=== PATIENT | female | born 1975 | race Caucasian/White ===

== ENCOUNTER 2024-12-08 00:49 | Emergency (ER) | payer BC, SELFPAY ==
[2024-12-08] MEDS ORDERED: DIPHENHYDRAMINE 50 MG/ML VIAL ONE ×2 (01:30→01:33)
[2024-12-08] MEDS ORDERED: droPERidol 5 MG/2 ML VIAL ONE ×2 (01:30→01:33)
[2024-12-08] MEDS ORDERED: NA CHLORIDE 0.9% 0 ML ONE (01:30)
[2024-12-08] MEDS ORDERED: NA CHLORIDE 0.9% 500 ML ONE ×2 (01:33→03:43)
[2024-12-08 01:44] LABS: Absolute Basophils 0.1 K/uL (0-0.5); Absolute Lymphocytes (CBC) 1.1 K/uL (0.7-4.9); Absolute Monocytes 0.4 K/uL (0.1-1.3); Absolute Neutrophil 10.7 K/uL (1.8-8.0); Basophils % 0.7 % (0-1.3); Hematocrit 42.7 % (36.0-45.0); Hemoglobin 14.5 g/dL (12.0-15.0); MCH 28.8 pg (27.0-35.0); MCHC 33.9 g/dL (32.0-36.0); MCV 84.7 fL (80-100); MPV 8.4 fL (7.6-11.3); Neutrophils % 87.3 % (41.7-73.7); Nucleated Red Blood Cells % 0.1 % (0-0); Platelets 291 thou/uL (152-406); RBC Red Blood Cell Count 5.04 M/uL (3.86-4.86); Red Cell Distribution Width 14.6 % (12.1-15.2)
[2024-12-08 01:57] LABS: Anion Gap 15.3 mEq/L (5.0-15.0); Potassium 3.3 mEq/L (3.5-5.1)
[2024-12-08 02:05] LABS: Specific Gravity 1.024 (1.005-1.030); Sqamous Epithelial <5 /HPF (None Seen); Urine Bacteria <20 /HPF (<20); Urine Bilirubin NEGATIVE (Negative); Urine Blood 1+ (Negative); Urine Clarity Extremely Turbid (Clear); Urine Color Light-Yellow (Yellow); Urine Culture Reflex Order NOT NEEDED; Urine Glucose NEGATIVE (Negative); Urine Ketones 4+ (Over) (Negative); Urine Micro Reflex YN NO BILL MICROSCOPIC; Urine Mucus Slight /HPF (None Seen); Urine Nitrite NEGATIVE (Negative); Urine Protein 2+ (Negative); Urine RBC >50 /HPF (None Seen); Urine Urobilinogen Normal (Normal); Urine WBC <5 /HPF (<5); Urine pH 8.5 (5.0-7.0)
[2024-12-08] MEDS ORDERED: DIAZEPAM 10 MG/2 ML INJ SYRINGE ONE (02:14)
[2024-12-08] MEDS ORDERED: KCL 20 MEQ/100 mL IVPB 100 ML IV ONE (03:44)
[2024-12-08 03:46] LABS: Blood Morphology Comment NOT SEEN (NOT SEEN); Platelet Estimate ADEQ; White Blood Cell Scan OK (OK)
--- NOTE | 2024-12-08 04:55 | ER ---
Nurse's Notes [facility] Name: Libra Singh Age: 49 yrs Sex: Female : 1975 Arrival Date: 12/08/2024 Time: 00:49 Bed 7 Private MD: Diagnosis: Nausea with vomiting, unspecified Presentation: 12/08 01:06 Chief complaint: Patient states: I have Nausea and vomiting for 5 hours. Coronavirus bm8 screen: At this time, the client does not indicate any symptoms associated with coronavirus-19. Ebola Screen: Patient negative for fever greater than or equal to 101.5 degrees Fahrenheit, and additional compatible Ebola Virus Disease symptoms Patient denies exposure to infectious person. Patient denies travel to an Ebola-affected area in the 21 days before illness onset. No symptoms or risks identified at this time. Initial Sepsis Screen: Does the patient meet any 2 criteria? No. Patient's initial sepsis screen is negative. Does the patient have a suspected source of infection? No. Patient's initial sepsis screen is negative. Risk Assessment: Do you want to hurt yourself or someone else? Patient reports no desire to harm self or others. Onset of symptoms was December 07, 2024 at 21:00. 01:06 Method Of Arrival: Ambulatory bm8 01:06 Acuity: NALLELY 3 bm8 Triage Assessment: 01:08 General: Appears in no apparent distress. uncomfortable, Behavior is calm, cooperative, bm8 appropriate for age. Pain: Complains of pain in abdomen Pain currently is 8 out of 10 on a pain scale. EENT: No deficits noted. No signs and/or symptoms were reported regarding the EENT system. Neuro: No deficits noted. Level of Consciousness is awake, alert, obeys commands, Oriented to person, place, time, situation, Appropriate for age. Cardiovascular: Denies chest pain, Capillary refill < 3 seconds in bilateral fingers Patient's skin is warm and dry. Respiratory: Airway is patent Trachea midline Respiratory effort is even, unlabored, Respiratory pattern is regular, symmetrical. GI: Reports lower abdominal pain, upper abdominal pain, nausea, vomiting. : No signs and/or symptoms were reported regarding the genitourinary system. Derm: No signs and/or symptoms reported regarding the dermatologic system. Musculoskeletal: No signs and/or symptoms reported regarding the musculoskeletal system. 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 - Infectious Disease History:: Denies. - Social history:: Smoking status: Reported history of juuling and/or vaping. Patient uses street drugs, marijuana. Screenin:39 [facility] ED Fall Risk Assessment (Adult) History of falling in the last 3 months, bm8 including since admission No falls in past 3 months (0 pts) Confusion or Disorientation No (0 pts) Intoxicated or Sedated No (0 pts) Impaired Gait No (0 pts) Mobility Assist Device Used No (0 pt) Altered Elimination No (0 pt) Score/Fall Risk Level 0 - 2 = Low Risk Oriented to surroundings, Maintained a safe environment, Educated pt \T\ family on fall prevention, incl call for assistance when getting out of bed, Assessed \T\ reinforced patient's understanding of fall precautions, Hourly rounding (assess needs \T\ fall precautionary measures) done, Used ambulatory aids as needed (educated on \T\ assisted with), Used gait belt as appropriate. Abuse screen: Denies threats or abuse. Nutritional screening: No deficits noted. Tuberculosis screening: No symptoms or risk factors identified. Assessment: 01:38 Reassessment: see triage assessment. bm8 01:40 Reassessment: pt declined testing for flu and covid. bm8 02:47 Reassessment: Patient appears in no apparent distress at this time. Patient and/or bm8 family updated on plan of care and expected duration. Pain level reassessed. Patient is alert, oriented x 3, equal unlabored respirations, skin warm/dry/pink. GI: Abdomen is flat, non-distended, Bowel sounds present X 4 quads. Reports nausea, vomiting, provider informed. 03:58 Reassessment: Patient appears in no apparent distress at this time. Patient and/or bm8 family updated on plan of care and expected duration. Pain level reassessed. Patient is alert, oriented x 3, equal unlabored respirations, skin warm/dry/pink. Patient denies pain at this time. Patient states feeling better. GI: Reports nausea, but the nausea is much more tolerable then when I came in. 05:00 Reassessment: Patient appears in no apparent distress at this time. Patient and/or bm8 family updated on plan of care and expected duration. Pain level reassessed. Patient is alert, oriented x 3, equal unlabored respirations, skin warm/dry/pink. pt states she is feeling much better and is ready to go home Patient denies pain at this time. Patient states feeling better. Patient states symptoms have improved. Vital Signs: 01:06 BP 165 / 101; Pulse 68; Resp 20; Temp 97.7; Pulse Ox 100% ; Weight 72.57 kg; Height 5 bm8 ft. 6 in. ; Pain 8/10; 02:47 BP 176 / 89; Pulse 78; Resp 19; Temp 97.7; Pulse Ox 97% ; Pain 4/10; bm8 03:58 BP 180 / 99; Pulse 83; Resp 18; Temp 97.7; Pulse Ox 100% ; Pain 2/10; bm8 04:49 BP 160 / 85; Pulse 65; Resp 18 S; Pulse Ox 100% on R/A; br2 05:00 BP 160 / 85; Pulse 75; Resp 17; Temp 97.5; Pulse Ox 100% ; Pain 0/10; bm8 01:06 Body Mass Index 25.82 (72.57 kg, 167.64 cm) bm8 01:06 Pain Scale: Adult bm8 02:47 Pain Scale: Adult bm8 03:58 Pain Scale: Adult bm8 05:00 Pain Scale: Adult bm8 Monica Coma Score: 01:39 Eye Response: spontaneous(4). Motor Response: obeys commands(6). Verbal Response: bm8 oriented(5). Total: 15. 02:47 Eye Response: spontaneous(4). Motor Response: obeys commands(6). Verbal Response: bm8 oriented(5). Total: 15. 03:58 Eye Response: spontaneous(4). Motor Response: obeys commands(6). Verbal Response: bm8 oriented(5). Total: 15. 05:00 Eye Response: spontaneous(4). Motor Response: obeys commands(6). Verbal Response: bm8 oriented(5). Total: 15. ED Course: 00:50 Patient arrived in ED. [id number] 00:55 Pankaj Hobbs MD is Attending Physician. ec2 01:06 Sumit Garibay, RN is Primary Nurse. bm8 01:07 Triage completed. bm8 01:08 Arm band placed on right wrist. bm8 01:39 Patient has correct armband on for positive identification. Placed in gown. Bed in low bm8 position. Call light in reach. Side rails up X 1. Client placed on continuous cardiac and pulse oximetry monitoring. NIBP monitoring applied. Pulse ox on. NIBP on. Door closed. Warm blanket given. Pillow given. Verbal reassurance given. 01:39 No provider procedures requiring assistance completed. Inserted saline lock: 22 gauge bm8 in right antecubital area, using aseptic technique. Blood collected. Flushed with 10 mL NS 02:39 CT Abd/Pelvis - IV Contrast Only In Process Unspecified. EDMS 05:00 Provided Education on: post er care. bm8 05:00 IV discontinued, intact, bleeding controlled, No redness/swelling at site. Pressure bm8 dressing applied. Administered Medications: 01:38 Drug: Droperidol IVP 1.25 mg IVP once Route: IVP; Site: right antecubital; bm8 02:50 Follow up: Response: No adverse reaction bm8 01:38 Drug: diphenhydrAMINE IVP 25 mg IVP once Route: IVP; Site: right antecubital; bm8 02:50 Follow up: Response: No adverse reaction bm8 01:44 Drug: NS 0.9% IV 500 ml IV at bolus once; to be given as a bolus over 30 minutes Route: bm8 IV; Rate: bolus; Site: right antecubital; 02:50 Follow up: Response: No adverse reaction; IV Status: Completed infusion; IV Intake: bm8 500ml 02:15 Drug: Diazepam IVP 10 mg IVP once Route: IVP; Site: right antecubital; bm8 02:50 Follow up: Response: No adverse reaction bm8 03:52 Drug: Potassium Chloride IV 20 mEq IV at calculated rate once; administer over 1-2 bm8 hours Route: IV; Rate: calculated rate; Site: right antecubital; 05:01 Follow up: Response: No adverse reaction; IV Status: Completed infusion; IV Intake: bm8 100ml 03:53 Drug: NS 0.9% IV 500 ml 500 ml IV at 1 bolus once; to be given as a bolus over 30 bm8 minutes Volume: 500 ml; Route: IV; Rate: 1 bolus; Site: right antecubital; 05:01 Follow up: Response: No adverse reaction; IV Status: Completed infusion; IV Intake: bm8 250ml 03:59 Not Given (Physician Discretion): potassium [id number] meq PO once bm8 Medication: 01:39 VIS not applicable for this client. bm8 Intake: 02:50 IV: 500ml; Total: 500ml. bm8 05:01 IV: 250ml; Total: 750ml. bm8 05:01 IV: 100ml; Total: 850ml. bm8 Outcome: 04:55 Discharge ordered by . ec2 05:03 Discharged to home ambulatory, bm8 05:03 Condition: stable 05:03 Discharge instructions given to patient, Instructed on discharge instructions, follow up and referral plans. no drinking with medication, no driving heavy equipment, medication usage, Demonstrated understanding of instructions, 05:03 Prescriptions given X 1, bm8 05:05 Patient left the ED. bm8 Signatures: Dispatcher [employer] EDMS Stefanie Starkey [email or web address] Pankaj Hobbs MD MD ec2 Sumit Garibay RN RN bm8 Jennifer Rabago RN RN br2 Corrections: (The following items were deleted from the chart) 05:03 01:39 Inserted saline lock: 22 gauge in right antecubital area, using aseptic bm8 technique. Blood collected. Flushed with 10 mL NS Patient did not have IV access during this emergency room visit. bm8
--- NOTE | 2024-12-08 04:56 | EDPHYS ---
Physician Documentation [facility] Name: Libra Singh Age: 49 yrs Sex: Female : 1975 Arrival Date: 12/08/2024 Time: 00:49 Bed 7 Private MD: ED Physician Pankaj Hobbs HPI: 12/08 01:12 This 49 yrs old Female presents to ER via Ambulatory with complaints of ec2 Nausea/Vomiting, Weakness. 01:12 Patient arrives today for evaluation of nausea and vomiting. Reports she is feeling ec2 unwell. States that she is been having nausea for 2 days and is having some vomiting that started today. Denies any abdominal pain. No urinary complaints. No cough and cold symptoms.. DUMP [address] [address]: 01:08 LMP 2010, unknown bm8 Historical: - Allergies: 01:08 No Known Allergies; bm8 - Home Meds: 01:08 Lamictal Oral [Active]; Lexapro Oral [Active]; bm8 - PMHx: 01:08 Bipolar disorder; Tardive dyskinesia; bm8 - PSHx: 01:08 breast; ovaries; tubal ligation; bm8 - Immunization history:: Adult Immunizations up to date. - Infectious Disease History:: Denies. - Social history:: Smoking status: Reported history of juuling and/or vaping. Patient uses street drugs, marijuana. ROS: 01:12 Constitutional: as per hpi ec2 Exam: 01:12 Constitutional: GEN: NAD Head: atraumatic Eyes: EOMI Ears: External ears are ec2 normal. CV: regular rate LUNGS: no respiratory distress ABD: non-distended, soft, not tender, not guarding, not rigid SKIN: no evidence of rashes MSK: no evidence of trauma Vital Signs: 01:06 BP 165 / 101; Pulse 68; Resp 20; Temp 97.7; Pulse Ox 100% ; Weight 72.57 kg; Height 5 bm8 ft. 6 in. ; Pain 8/10; 02:47 BP 176 / 89; Pulse 78; Resp 19; Temp 97.7; Pulse Ox 97% ; Pain 4/10; bm8 03:58 BP 180 / 99; Pulse 83; Resp 18; Temp 97.7; Pulse Ox 100% ; Pain 2/10; bm8 04:49 BP 160 / 85; Pulse 65; Resp 18 S; Pulse Ox 100% on R/A; br2 05:00 BP 160 / 85; Pulse 75; Resp 17; Temp 97.5; Pulse Ox 100% ; Pain 0/10; bm8 01:06 Body Mass Index 25.82 (72.57 kg, 167.64 cm) bm8 01:06 Pain Scale: Adult bm8 02:47 Pain Scale: Adult bm8 03:58 Pain Scale: Adult bm8 05:00 Pain Scale: Adult bm8 Monica Coma Score: 01:39 Eye Response: spontaneous(4). Motor Response: obeys commands(6). Verbal Response: bm8 oriented(5). Total: 15. 02:47 Eye Response: spontaneous(4). Motor Response: obeys commands(6). Verbal Response: bm8 oriented(5). Total: 15. 03:58 Eye Response: spontaneous(4). Motor Response: obeys commands(6). Verbal Response: bm8 oriented(5). Total: 15. 05:00 Eye Response: spontaneous(4). Motor Response: obeys commands(6). Verbal Response: bm8 oriented(5). Total: 15. MDM: 00:59 Medical Screening Exam initiated ec2 01:12 Data reviewed: vital signs, nurses notes. ED course: GEN: NAD Head: atraumatic Eyes: ec2 EOMI Ears: External ears are normal. CV: regular rate LUNGS: no respiratory distress ABD: non-distended, soft, nontender, no guarding, not rigid SKIN: no evidence of rashes MSK: no evidence of trauma. 01:12 ED course: Patient arrives today for evaluation of nausea vomiting. Examination is ec2 revealing for well-appearing nontoxic individual has a reassuring abdominal examination. Will obtain lab work, urine studies and treat the patient symptoms. Suspect gastroenteritis. Additionally considered urinary tract infection.. 02:01 ED course: Metabolic profile shows slight hypokalemia with potassium of 3.3, minimal ec2 anion gap elevation. Patient receiving crystalloid, patient reports improvement in symptoms. Slight leukocytosis noted.. 02:01 ED course: Patient without any focal abdominal pain, doubt appendicitis, doubt ec2 cholecystitis.. 04:55 ED course: CT imaging shows pancolitis. Will discharge home with antiemetic. Return ec2 precautions given.. 04:57 ED course: Patient with hypokalemia, replaced intravenously, patient discharged home. ec2 Return precautions given.. 12/08 01:12 Order name: CBC with Diff; Complete Time: 04:21 ec2 12/08 01:12 Order name: BMP; Complete Time: 02:00 ec2 12/08 01:12 Order name: UAM; Complete Time: 02:11 ec2 12/08 03:46 Order name: CBC Smear Scan; Complete Time: 04:21 EDMS 12/08 02:12 Order name: CT Abd/Pelvis - IV Contrast Only ec2 12/08 01:12 Order name: IV; Complete Time: 01:38 ec2 Administered Medications: 01:38 Drug: Droperidol IVP 1.25 mg IVP once Route: IVP; Site: right antecubital; bm8 02:50 Follow up: Response: No adverse reaction bm8 01:38 Drug: diphenhydrAMINE IVP 25 mg IVP once Route: IVP; Site: right antecubital; bm8 02:50 Follow up: Response: No adverse reaction bm8 01:44 Drug: NS 0.9% IV 500 ml IV at bolus once; to be given as a bolus over 30 minutes Route: bm8 IV; Rate: bolus; Site: right antecubital; 02:50 Follow up: Response: No adverse reaction; IV Status: Completed infusion; IV Intake: bm8 500ml 02:15 Drug: Diazepam IVP 10 mg IVP once Route: IVP; Site: right antecubital; bm8 02:50 Follow up: Response: No adverse reaction bm8 03:52 Drug: Potassium Chloride IV 20 mEq IV at calculated rate once; administer over 1-2 bm8 hours Route: IV; Rate: calculated rate; Site: right antecubital; 05:01 Follow up: Response: No adverse reaction; IV Status: Completed infusion; IV Intake: bm8 100ml 03:53 Drug: NS 0.9% IV 500 ml 500 ml IV at 1 bolus once; to be given as a bolus over 30 bm8 minutes Volume: 500 ml; Route: IV; Rate: 1 bolus; Site: right antecubital; 05:01 Follow up: Response: No adverse reaction; IV Status: Completed infusion; IV Intake: bm8 250ml 03:59 Not Given (Physician Discretion): potassium [id number] meq PO once bm8 Disposition Summary: 12/08/24 04:55 Discharge Ordered Notes: Location: Home ec2 Condition: Stable ec2 Diagnosis - Nausea with vomiting, unspecified ec2 Followup: ec2 - With: Private Physician - When: - Reason: Re-evaluation by your physician Discharge Instructions: - Discharge Summary Sheet ec2 - Nausea and Vomiting, Adult, [id number] ec2 Forms: - Medication Reconciliation Form ec2 - Antibiotic Education ec2 - Prescription Opioid Use ec2 - Patient Portal Instructions ec2 - Leadership Thank You Letter ec2 Prescriptions: - Zofran 4 mg Oral Tablet - take 1 tablet ORAL route every 12 hours As needed; 20 tablet; Refills: 0, ec2 Product Selection Permitted Critical care time excluding procedures: 04:57 Critical care time: Bedside Care: 30 minutes, Consultation: 5 minutes. Total time: 35 ec2 minutes Signatures: Dispatcher [employer] Pankaj Ramirez MD MD ec2 Sumit Garibay RN RN bm8
--- NOTE | 2024-12-08 05:47 | RAD REPORT ---
CT ABDOMEN PELVIS WITH IV CONTRAST Exam date: December 08, 2024 Comparison: None Indication: Abdominal pain Technique: Multiple helical axial images were obtained through the abdomen and pelvis using intravenous contrast . Coronal and sagittal reformatted images were obtained. All CT scans at this facility use dose modulation, iterative reconstruction, and/or weight-based dosi ng when appropriate to reduce radiation dose to as low as reasonably achievable. Findings: Lung bases: Breast implants are present]. Mild basilar atelectasis noted. Liver: [There is low attenuation suggesting fatty changes.] Gallbladder/biliary: [Appears unremarkable] Pancreas: [Unremarkable. No evidence of ductal enlargement.] Spleen: Appears borderline enlarged. Adrenals: Unremarkable. Kidneys and ureters: [No evidence of hydronephrosis. Normal enhancement.] There is a 3 mm stone in the midpole of the right kidney. Bladder: Unremarkable. Pelvic organs: Unremarkable. Bowel: [There is a mildly thickened appearance of the colon. There is mild prominence of pericolonic vascularity. Colonic diverticula are present. No evidence of bowel obstruction.] Appendix appears unremarkable. Vasculature: Mild aortic atherosclerosis demonstrated. Peritoneum: No free air. No significant free fluid. Lymph nodes: Unremarkable. Soft tissues: Unremarkable. Bones: Unremarkable. Impression: 1. Mildly thickened appearance of the colon which may reflect pancolitis. 2. Small right renal stone. 3. Hepatic steatosis. Electronically signed by: Cecil Saini MD 12/08/2024 04:52 AM [facility] Due to temporary technical issues with the PACS/Bundle It reporting system, reports are being ruth d by the in-house radiologist without review as a courtesy to ensure prompt reporting the interpreting radiologist is fully responsible for the content of the report. Transcribed Date/Time: 12/08/2024 5:47 AM
[2024-12-10 15:53] VITALS: BP 160/85; TEMP 97.5; O2SAT 100
== END 2024-12-08 05:05 | disposition home or self-care (01) ==
LOC: ER 00:49
DX: R11.2 Nausea with vomiting, unspecified (principal); Z87.891 Personal history of nicotine dependence
CPT/HCPCS: 96365; 96361; 85025; 81001; 80048; 36415; 74177; 96375; 99284; Q9967; J3480; J1200; J3360; J1790; J7040 ×2

== ENCOUNTER 2025-03-06 11:13 | Emergency (ER) | payer BC ==
--- OUTSIDE RECORDS SUMMARY | 2025-03-06 11:16 | XMS REPORT | Continuity of Care Document ---
Author Name Unknown Address [address] [place] [address] [address] [place] [address] [facility] [address] [facility] [address] [place] [address] Care Team Providers Care Electrification Adviser Name Role Phone [email or web address] Attending Clinician Karen Alejandre Attending Clinician [phone] [email or web address] Admitting Clinician Maycol hickey Payers Payer Name Policy Type Policy Number Effective Date Expirati on Date Source [facility] [id number] [facility] [id number] 2018 00:00:00 Problems Condition Name Condition Details Condition Category Status Onset Date Resolution Date Last Treatment Date Treating Clinician Comments Source Mental disorder Mental Disorder Problem Active 2020-11 00:00: 00 [facility] Hypertensi ve disorder Hypertensi ve Disorder Problem Active 2020-11 00:00: 00 [facility] Asthma Asthma Problem Active 2020-11 00:00: 00 [facility] Endometriu m thickened Endometriu m Thickened Problem Active 02-06 00:00: 00 [facility] Long-term current use of selective estrogen receptor modulator Long-term Current Use of Selective Estrogen Receptor Modulator Problem Active 02-06 00:00: 00 [facility] Cyst of ovary Cyst of Ovary Problem Active [facility] Abnormal uterine bleeding Abnormal Uterine Bleeding Problem Active [facility] Malignant tumor of breast Malignant Tumor of Breast Problem Active [facility] Bipolar disorder Bipolar Disorder Problem Active [facility] Social History Smoking Status Start Date Stop Date Source Former Smoker [facility] Medications Ordered Medication Name Filled Medication Name Start Date Stop Date Current Medication? Ordering Clinician Indication Dosage Frequency Signature (SIG) Comments Components Source promethazin e 25 mg tablet promethazin e 25 mg tablet No promethazi ne 25 mg tablet [facility] risperidone 0.25 mg tablet risperidone 0.25 mg tablet No risperidon e 0.25 mg tablet [facility] risperidone 0.5 mg tablet risperidone 0.5 mg tablet No risperidon e 0.5 mg tablet [facility] risperidone 3 mg tablet risperidone 3 mg tablet No risperidon e 3 mg tablet [facility] tretinoin 0.025 % topical cream APPLY PEA SIZED AMOUNT TOPICALLY TO FACE 2 TO 3 TIMES A WEEK AT NIGHT. INCREASE TO EVERY NIGHT TOLERATED. FOLLOW WITH A THICK LAYER OF MOISTURIZER tretinoin 0.025 % topical cream APPLY PEA SIZED AMOUNT TOPICALLY TO FACE 2 TO 3 TIMES A WEEK AT NIGHT. INCREASE TO EVERY NIGHT TOLERATED. FOLLOW WITH A THICK LAYER OF MOISTURIZER No tretinoin 0.025 % topical cream APPLY PEA SIZED AMOUNT TOPICALLY TO FACE 2 TO 3 TIMES A WEEK AT NIGHT. INCREASE TO EVERY NIGHT TOLERATED. FOLLOW WITH A THICK LAYER OF MOISTURIZE R [facility] Zepbound 10 mg/0.5 mL subcutaneou s pen injector INJECT 10MG SUBCUTANEOU SLY ONCE EVERY WEEK ON THE SAME DAY EACH WEEK INTO ABDOMEN THIGH OR UPPER ARM WITH OR WITHOUT FOOD Zepbound 10 mg/0.5 mL subcutaneou s pen injector INJECT 10MG SUBCUTANEOU SLY ONCE EVERY WEEK ON THE SAME DAY EACH WEEK INTO ABDOMEN THIGH OR UPPER ARM WITH OR WITHOUT FOOD No Zepbound 10 mg/0.5 mL subcutaneo us pen injector INJECT 10MG SUBCUTANEO USLY ONCE EVERY WEEK ON THE SAME DAY EACH WEEK INTO ABDOMEN THIGH OR UPPER ARM WITH OR WITHOUT FOOD [facility] Zepbound 2.5 mg/0.5 mL subcutaneou s pen injector Zepbound 2.5 mg/0.5 mL subcutaneou s pen injector No Zepbound 2.5 mg/0.5 mL subcutaneo us pen injector [facility] Zepbound 5 mg/0.5 mL subcutaneou s pen injector Zepbound 5 mg/0.5 mL subcutaneou s pen injector No Zepbound 5 mg/0.5 mL subcutaneo us pen injector [facility] Zepbound 5 mg/0.5 mL subcutaneou s solution 10 mg every week by sub-q route. Zepbound 5 mg/0.5 mL subcutaneou s solution 10 mg every week by sub-q route. No 10mg Q1W Zepbound 5 mg/0.5 mL subcutaneo us solution 10 mg every week by sub-q route. [facility] Zepbound 7.5 mg/0.5 mL subcutaneou s pen injector Zepbound 7.5 mg/0.5 mL subcutaneou s pen injector No Zepbound 7.5 mg/0.5 mL subcutaneo us pen injector [facility] alprazolam 0.5 mg tablet TAKE 1 TO 2 TABLETS BY MOUTH EVERY 6 HOURS NEEDED alprazolam 0.5 mg tablet TAKE 1 TO 2 TABLETS BY MOUTH EVERY 6 HOURS NEEDED No alprazolam 0.5 mg tablet TAKE 1 TO 2 TABLETS BY MOUTH EVERY 6 HOURS NEEDED [facility] escitalopra m 20 mg tablet escitalopra m 20 mg tablet No escitalopr am 20 mg tablet [facility] furosemide 20 mg tablet furosemide 20 mg tablet No furosemide 20 mg tablet [facility] lamotrigine 200 mg tablet lamotrigine 200 mg tablet No lamotrigin e 200 mg tablet [facility] lithium carbonate ER 300 mg tablet,exte nded release TAKE 1 TABLET BY MOUTH EVERY MORNING AND 2 TABLETS BY MOUTH EVERY NIGHT AT BEDTIME lithium carbonate ER 300 mg tablet,exte nded release TAKE 1 TABLET BY MOUTH EVERY MORNING AND 2 TABLETS BY MOUTH EVERY NIGHT AT BEDTIME No lithium carbonate ER 300 mg tablet,ext ended release TAKE 1 TABLET BY MOUTH EVERY MORNING AND 2 TABLETS BY MOUTH EVERY NIGHT AT BEDTIME [facility] methylpheni date 10 mg tablet methylpheni date 10 mg tablet No methylphen idate 10 mg tablet [facility] methylpheni date 20 mg tablet methylpheni date 20 mg tablet No methylphen idate 20 mg tablet [facility] minocycline 100 mg capsule minocycline 100 mg capsule No minocyclin e 100 mg capsule [facility] olmesartan 20 mg tablet olmesartan 20 mg tablet No olmesartan 20 mg tablet [facility] potassium chloride ER 10 mEq capsule,ext ended release potassium chloride ER 10 mEq capsule,ext ended release No potassium chloride ER 10 mEq capsule,ex tended release [facility] tamoxifen 20 mg tablet tamoxifen 20 mg tablet No tamoxifen 20 mg tablet [facility] telmisartan 40 mg tablet telmisartan 40 mg tablet No telmisarta n 40 mg tablet [facility] tobramycin 0.3 % eye drops tobramycin 0.3 % eye drops No tobramycin 0.3 % eye drops [facility] tranexamic acid 650 mg tablet tranexamic acid 650 mg tablet No tranexamic acid 650 mg tablet [facility] valacyclovi r 1 gram tablet valacyclovi r 1 gram tablet No valacyclov ir 1 gram tablet [facility] valsartan 160 mg tablet valsartan 160 mg tablet No valsartan 160 mg tablet [facility] Vraylar 1.5 mg capsule Vraylar 1.5 mg capsule No Vraylar 1.5 mg capsule [facility] Vraylar 3 mg capsule Vraylar 3 mg capsule No Vraylar 3 mg capsule [facility] acetaminoph en 300 mg-codeine 30 mg tablet TAKE 1 TABLET BY MOUTH EVERY 6 HOURS NEEDED FOR PAIN acetaminoph en 300 mg-codeine 30 mg tablet TAKE 1 TABLET BY MOUTH EVERY 6 HOURS NEEDED FOR PAIN No acetaminop hen 300 mg-codeine 30 mg tablet TAKE 1 TABLET BY MOUTH EVERY 6 HOURS NEEDED FOR PAIN [facility] albuterol sulfate HFA 90 mcg/actuati on aerosol inhaler INHALE 2 PUFFS BY MOUTH EVERY 4 HOURS DIRECTED NEEDED FOR WHEEZING albuterol sulfate HFA 90 mcg/actuati on aerosol inhaler INHALE 2 PUFFS BY MOUTH EVERY 4 HOURS DIRECTED NEEDED FOR WHEEZING No albuterol sulfate HFA 90 mcg/actuat ion aerosol inhaler INHALE 2 PUFFS BY MOUTH EVERY 4 HOURS DIRECTED NEEDED FOR WHEEZING [facility] amoxicillin 500 mg capsule amoxicillin 500 mg capsule No amoxicilli n 500 mg capsule [facility] amoxicillin 875 mg-potassiu m clavulanate 125 mg tablet TAKE 1 TABLET BY MOUTH EVERY 12 HOURS FOR 7 DAYS amoxicillin 875 mg-potassiu m clavulanate 125 mg tablet TAKE 1 TABLET BY MOUTH EVERY 12 HOURS FOR 7 DAYS No amoxicilli n 875 mg-potassi um clavulanat e 125 mg tablet TAKE 1 TABLET BY MOUTH EVERY 12 HOURS FOR 7 DAYS [facility] clindamycin 2 % vaginal cream Insert 1 applicatorf ul every day by vaginal route at bedtime for 7 days. clindamycin 2 % vaginal cream Insert 1 applicatorf ul every day by vaginal route at bedtime for 7 days. No 1applic ator(s) ful Q1D clindamyci n 2 % vaginal cream Insert 1 applicator ful every day by vaginal route at bedtime for 7 days. [facility] clonazepam 0.5 mg tablet TAKE 1 TABLET BY MOUTH EVERY MORNING. AFTER 5 DAYS MAY INCREASE TO TWICE DAILY clonazepam 0.5 mg tablet TAKE 1 TABLET BY MOUTH EVERY MORNING. AFTER 5 DAYS MAY INCREASE TO TWICE DAILY No clonazepam 0.5 mg tablet TAKE 1 TABLET BY MOUTH EVERY MORNING. AFTER 5 DAYS MAY INCREASE TO TWICE DAILY [facility] clonazepam 1 mg tablet TAKE 1 TABLET BY MOUTH EVERY MORNING AND 1.5 TABLETS DAILY AFTER SUPPER clonazepam 1 mg tablet TAKE 1 TABLET BY MOUTH EVERY MORNING AND 1.5 TABLETS DAILY AFTER SUPPER No clonazepam 1 mg tablet TAKE 1 TABLET BY MOUTH EVERY MORNING AND 1.5 TABLETS DAILY AFTER SUPPER [facility] dextroamphe tamine-amph etamine 10 mg tablet TAKE 2 TABLETS BY MOUTH EVERY MORNING AND 1 TABLET DAILY AFTER LUNCH dextroamphe tamine-amph etamine 10 mg tablet TAKE 2 TABLETS BY MOUTH EVERY MORNING AND 1 TABLET DAILY AFTER LUNCH No dextroamph etamine-am phetamine 10 mg tablet TAKE 2 TABLETS BY MOUTH EVERY MORNING AND 1 TABLET DAILY AFTER LUNCH [facility] dextroamphe tamine-amph etamine 20 mg tablet dextroamphe tamine-amph etamine 20 mg tablet No dextroamph etamine-am phetamine 20 mg tablet [facility] doxycycline hyclate 100 mg capsule Take 1 capsule twice a day by oral route for 7 days. doxycycline hyclate 100 mg capsule Take 1 capsule twice a day by oral route for 7 days. No doxycyclin e hyclate 100 mg capsule Take 1 capsule twice a day by oral route for 7 days. [facility] doxycycline hyclate 100 mg tablet TAKE 1 TABLET BY MOUTH TWICE DAILY WITH A FULL GLASS OF WATER AND MEAL FOR 3 WEEKS doxycycline hyclate 100 mg tablet TAKE 1 TABLET BY MOUTH TWICE DAILY WITH A FULL GLASS OF WATER AND MEAL FOR 3 WEEKS No doxycyclin e hyclate 100 mg tablet TAKE 1 TABLET BY MOUTH TWICE DAILY WITH A FULL GLASS OF WATER AND MEAL FOR 3 WEEKS [facility] escitalopra m 10 mg tablet escitalopra m 10 mg tablet No escitalopr am 10 mg tablet [facility] Fluarix Quad 3705-0032 (PF) 60 mcg (15 mcg x 4)/0.5 mL IM syringe Fluarix Quad (PF) 60 mcg (15 mcg x 4)/0.5 mL IM syringe No Fluarix Quad (PF) 60 mcg (15 mcg x 4)/0.5 mL IM syringe [facility] ibuprofen 600 mg tablet TAKE 1 TABLET BY MOUTH EVERY 5 TO 6 HOURS NEEDED FOR PAIN ibuprofen 600 mg tablet TAKE 1 TABLET BY MOUTH EVERY 5 TO 6 HOURS NEEDED FOR PAIN No ibuprofen 600 mg tablet TAKE 1 TABLET BY MOUTH EVERY 5 TO 6 HOURS NEEDED FOR PAIN [facility] Ingrezza 80 mg capsule Ingrezza 80 mg capsule No Ingrezza 80 mg capsule [facility] montelukast 10 mg tablet montelukast 10 mg tablet No montelukas t 10 mg tablet [facility] pantoprazol e 40 mg tablet,judi yed release TAKE 1 TABLET BY MOUTH ONCE EVERY DAY ON AN EMPTY STOMACH pantoprazol e 40 mg tablet,judi yed release TAKE 1 TABLET BY MOUTH ONCE EVERY DAY ON AN EMPTY STOMACH No pantoprazo le 40 mg tablet,del ayed release TAKE 1 TABLET BY MOUTH ONCE EVERY DAY ON AN EMPTY STOMACH [facility] Immunizations Ordered Immunization Name Filled Immunization Name Date Status Comments Source influenza nasal, unspecified formulation influenza nasal, unspecified formulation Unknown Completed [facility] influenza, seasonal, injectable influenza, seasonal, injectable Unknown Completed [facility] Vital Signs Vital Name Observation Time Observation Value Comments S ource BMI (Body Mass Index) 2024-07-18 00:00:00 26 kg/m2 [facility] BP Diastolic 2024-07-18 00:00:00 91 mm[Hg] [facility] Body Weight 2024-07-18 00:00:00 161 [lb_av] [facility] Height 2024-07-18 00:00:00 66 [in_i] [facility] BP Systolic 2024-07-18 00:00:00 135 mm[Hg] [facility] BP Diastolic 2022-04-21 00:00:00 67 mm[Hg] [facility] Height 2022-04-21 00:00:00 66 [in_i] [facility] BMI (Body Mass Index) 2022-04-21 00:00:00 32.1 kg/m2 [facility] BP Systolic 2022-04-21 00:00:00 110 mm[Hg] [facility] Body Weight 2022-04-21 00:00:00 198.8 [lb_av] [facility] Procedures Procedure Date / Time Performed Performing [facility] Source SCREENING MAMMOGRAPHY BI 2-VIEW BREAST INC CAD 2024-07-18 00:00:00 [facility] Hysteroscopy 2020-02-07 00:00:00 [facility] 2017-12-28 00:00:00 [facility] Ovarian Cystectomy 2013-10-18 00:00:00 [facility] Tubal Ligation 2012-12-28 00:00:00 [facility] Endometrial Ablation 2012-12-28 00:00:00 [facility] Leep 2012-11-27 00:00:00 [facility] Ooph[facility] (Ovary Removal) 2011-12-28 00:00:00 [facility] Mastectomy 2011-11-27 00:00:00 [facility] M edical Biopsy of Breast 2011-10-27 00:00:00 [facility] Breast Implants 2009-09-27 00:00:00 [facility] Dental Surgery [facility] Dilation and Curettage [facility] a Medical Encounters Start Date/Time End Date/Time Encounter Type Admission Type Attending Clinicians Care Facility Care Department Encounter ID Source 2024-07-18 00:00:00 2024-07-18 00:00:00 Karen Thompson MD: [address] , [facility] [address] [address] , Ph. [facility] - NTX_AMARJIT_ [place] Office* [id number] [facility] 2022-04-25 00:00:00 2022-04-25 00:00:00 Outpatient NTX_AMARJIT_ Savanahle_Q [facility] [id number] [facility] 2022-04-21 00:00:00 2022-04-21 00:00:00 Outpatient Karen Thompson [facility] [id number] 2022-04-21 00:00:00 2022-04-21 00:00:00 Karen Thompson MD: [address], [address], [place] [address] , Ph. [facility] - NTX_CRABLE_ [place] Office* [id number] [facility] 2021-03-13 07:13:00 2021-03-13 07:13:00 Outpatient NTX_CRABLE_ Crable_Q [facility] [id number] [facility] Results Test Description Test Time Test Comments Results Result Co mments Source [facility] Medicalpap, LB + reflex [id number] 16:47:00* Test Item Value Reference Range Interpretation Comme nts Pap categorization (test code = Pap categorization) N final Pap diagnosis (test code = final Pap diagnosis) WNL hpvtest (test code = hpvtest) NEG specimen adequacy (test code = specimen adequacy) SATISFACTORY FOR EVALUATION. other findings (test code = other findings) SEE NOTE bodysite (test code = bodysite) Cervical/Endocervic al clinical history (test code = clinical history) Dx - Z01.419, Z20.818, N76.0, N76.1 hormonalevaluation (test code = hormonalevaluation) SEE NOTE [facility] Medicalurinalysis, [id number] 16:46:48* Test Item Value Reference Range Interpretation Comme nts Leukocytes (test code = Leukocytes) Negative Nitrite (test code = Nitrite) negative Urobilinogen (test code = Urobilinogen) Normal Protein (test code = Protein) Negative pH (test code = pH) 5.0 Blood (test code = Blood) Negative Specific Marshall (test code = Specific Marshall) 1.000 Ketone (test code = Ketone) Negative Bilirubin (test code = Bilirubin) Negative Glucose (test code = Glucose) Negative Appearance (test code = Appearance) Clear Color (test code = Color) Yellow [facility] in Serum or Plasma by [id number] 00:00:00* Test Item Value Reference Range Interpretation Comme nts HIV 1/2 4TH gen, rflx conf ( test code = HIV 1/2 4TH gen, rflx conf) non-reactive non-reactive [facility] MedicalUrinalysis macro (dipstick) panel - [id number] 15:31:14* Test Item Value Reference Range Interpretation Comme nts Leukocytes (test code = Leukocytes) Negative Nitrite (test code = Nitrite) negative Urobilinogen (test code = Urobilinogen) Normal Protein (test code = Protein) Negative pH (test code = pH) 5.0 Blood (test code = Blood) Negative Specific Marshall (test code = Specific Marshall) 1.025 Ketone (test code = Ketone) Negative Bilirubin (test code = Bilirubin) Negative Glucose (test code = Glucose) Negative Appearance (test code = Appearance) Clear Color (test code = Color) Yellow [facility] Medicalpap, LB + reflex [id number] 15:31:00* Test Item Value Reference Range Interpretation Comme nts Pap categorization (test code = Pap categorization) N final Pap diagnosis (test code = final Pap diagnosis) WNL hpvtest (test code = hpvtest) neg specimen adequacy (test code = specimen adequacy) satisfactory for evaluation. other findings (test code = other findings) see note bodysite (test code = bodysite) cervical/endocervic al clinical history (test code = clinical history) see note hormonalevaluation (test code = hormonalevaluation) see note [facility]
[2025-03-06] MEDS ORDERED: FAMOTIDINE 20 MG/2 ML VIAL IV ONE (11:26)
[2025-03-06] MEDS ORDERED: HYDROMORPHONE HCL 1 MG/ML INJ ONE (11:26)
[2025-03-06] MEDS ORDERED: ONDANSETRON 4 MG/2 ML VIAL ONE (11:26)
[2025-03-06 11:37] LABS: Absolute Basophils 0.1 K/uL (0-0.5); Absolute Eosinophils 0.1 K/uL (0-0.5); Absolute Lymphocytes (CBC) 2.1 K/uL (0.7-4.9); Absolute Monocytes 0.7 K/uL (0.1-1.3); Absolute Neutrophil 9.8 K/uL (1.8-8.0); Basophils % 0.9 % (0-1.3); Eosinophils % 0.9 % (0-4.4); Hematocrit 41.2 % (36.0-45.0); Hemoglobin 14.5 g/dL (12.0-15.0); Lymphocytes % 16.4 % (15.3-44.8); MCH 29.1 pg (27.0-35.0); MCHC 35.2 g/dL (32.0-36.0); MCV 82.6 fL (80-100); MPV 8.2 fL (7.6-11.3); Monocytes % 5.2 % (3.3-12.3); Neutrophils % 76.6 % (41.7-73.7); Nucleated Red Blood Cells % 0.1 % (0-0); Platelets 332 thou/uL (152-406); RBC Red Blood Cell Count 4.99 M/uL (3.86-4.86); Red Cell Distribution Width 14.1 % (12.1-15.2)
[2025-03-06 12:04] LABS: Albumin 4.1 g/dL (3.4-5.0); Albumin/Globulin Ratio 1.1 (1.1-1.8); Anion Gap 17.7 mEq/L (5.0-15.0); Bilirubin Total 0.7 mg/dL (0.2-1.0); Globulin 3.6 g/dL (2.3-3.5); Potassium 3.7 mEq/L (3.5-5.1); Protein, Total 7.7 g/dL (6.4-8.2)
--- NOTE | 2025-03-06 13:24 | RAD REPORT ---
EXAMINATION: CT Abdomen Pelvis Wo Contrast CLINICAL INDICATION: Female, 49 years old. ABD PAIN TECHNIQUE: CT abdomen and pelvis was performed, without IV contrast, as per department protocol. Axia l, sagittal and coronal reconstructions were obtained. One or more of the following dose reduction techniques were used: Automated exposure control, adjustment of the mA and kV according to the patien t size, and iterative reconstruction. Unless otherwise specified, incidental findings do not require dedicated imaging follow-up. COMPARISON: 12/08/2024 FINDINGS: The lack of intravenous contrast limits the sensitivity of this exam for evaluation of solid visceral organs, vascular structures, and retroperitoneum. LOWER CHEST: The visualized lung bases are clear. LIVER: Normal in size and contour. No focal lesion. BILIARY SYSTEM: No suspicious abnormalities. SPLEEN: Normal size. No focal lesion. PANCREAS: No mass, ductal dilation, or ofelia-pancreatic fluid. ADRENALS: Normal; no mass. KIDNEYS AND URETERS: Normal size and contour. No hydronephrosis. Right interpolar 3mm nonobstructing calculus. URINARY BLADDER: Normal contour. GASTROINTESTINAL TRACT: Segmental wall thickening along the descending colon, and proximal sigmoid, w ith adventitial fat stranding. No focal inflammation or fluid collections. No evidence of bowel obstruction, significant free fluid, free air or abscess. APPENDIX: Normal appendix. LYMPH NODES: No lymphadenopathy. MUSCULOSKELETAL: No acute or suspicious osseous abnormality. ADDITIONAL FINDINGS: None. IMPRESSION: Segmental wall thickening and inflammatory changes along the descending colon and proximal sigmoid co casper, most suggestive of infectious or inflammatory colitis. No evidence of complications. Nonobstructing right interpolar 3 mm calculus.
--- NOTE | 2025-03-06 15:32 | EDPHYS ---
Physician Documentation [facility] Name: Libra Singh Age: 49 yrs Sex: Female : 1975 Arrival Date: 03/06/2025 Time: 11:13 Bed 20 Private MD: ED Physician Bakari Arvizu HPI: 03/06 11:25 This 49 yrs old Female presents to ER via Wheelchair with complaints of Abdominal Pain. ms3 11:25 49-year-old female past medical history of tardive dyskinesia, bipolar disorder ms3 presents to the emergency department for right-sided abdominal pain that began last night. Patient states the pain has gradually become worse today. The pain is currently a 10/10. She denies any alleviating or inciting factors. Patient denies eating or drinking patient denies p.o. intake today.. Historical: - Allergies: 11:17 No Known Allergies; iw - PMHx: 11:17 Bipolar disorder; tardive dyskinesia; iw - PSHx: 11:17 breast; Ovaries; tubal ligation; iw 11:18 tummy tuck for breast surgery; iw - Social history:: Smoking status: . ROS: 11:25 Constitutional: Negative for fever, and chills. Cardiovascular: Negative for chest ms3 pain, and palpitations. Respiratory: Negative for shortness of breath, cough, wheezing, and pleuritic chest pain, 11:25 MS/Extremity: Negative for injury and deformity, Skin: Negative for injury, rash, and discoloration, 11:25 Abdomen/GI: Positive for abdominal pain, nausea and vomiting, Exam: 11:25 Constitutional: This is a well developed, well nourished patient who is awake, alert, ms3 and in no acute distress. Cardiovascular: Regular rate and rhythm with a normal S1 and S2. No gallops, murmurs, or rubs. Normal PMI, no JVD. No pulse deficits. Respiratory: Lungs have equal breath sounds bilaterally, clear to auscultation and percussion. No rales, rhonchi or wheezes noted. No increased work of breathing, no retractions or nasal flaring. 11:25 Abdomen/GI: Inspection: abdomen appears normal, Bowel sounds: normal, Palpation: severe abdominal tenderness, in the right upper quadrant, Vital Signs: 11:19 BP 160 / 119; Pulse 98; Resp 22; Temp 97.1; Pulse Ox 100% on R/A; Weight 72.57 kg; Pain iw 8/10; 15:58 BP 123 / 63; Pulse 83; Resp 16; Pulse Ox 100% on R/A; jb4 11:19 Pain Scale: Adult iw MDM: 11:25 Differential diagnosis: cholecystitis, Cholelithiasis, non-specific abd pain. ED ms3 course: Initially was going to order CT abdomen pelvis and patient declines. Right upper quadrant ultrasound ordered.. 11:27 Medical Screening Exam initiated ms3 15:44 Data reviewed: vital signs, nurses notes, lab test result(s), radiologic studies, and ms3 as a result, I will discharge patient. I considered the following discharge prescriptions or medication management in the emergency department Medications were administered in the Emergency Department. See MAR. Counseling: I had a detailed discussion with the patient and/or guardian regarding the historical points, exam findings, and any diagnostic results supporting the discharge/admit diagnosis, lab results, radiology results, the need for outpatient follow up, to return to the emergency department if symptoms worsen or persist or if there are any questions or concerns that arise at home. Special discussion: Based on the patient's Hx, exam, and Dx evaluation, there is no indication for emergent surgery or inpatient Tx. It is understood by the patient/guardian that if the Sx's persist or worsen they need to return immediately for re-evaluation. ED course: Discussed CT abdomen and pelvis results showing colitis with patient. Patient to follow-up with primary care physician 2 to 3 days. Patient understands agrees with plan. All questions were answered. Return precautions discussed include worsening symptoms, or any other concerns.. 03/06 11:24 Order name: CBC with Diff; Complete Time: 15:30 ms3 03/06 11:24 Order name: CMP; Complete Time: 15:30 ms3 03/06 11:24 Order name: Lipase; Complete Time: 15:30 ms3 03/06 12:42 Order name: Abdomen ; Complete Time: 15:30 EDMS 03/06 11:24 Order name: IV Saline Lock; Complete Time: 11:40 ms3 03/06 11:24 Order name: Labs collected and sent; Complete Time: 11:40 ms3 Administered Medications: 11:31 Drug: Famotidine IVP 20 mg IVP once; dilute with 10 mL 0.9% NaCl; give over 2 minutes aa5 Route: IVP; Site: right hand; 11:31 Drug: Ondansetron IVP 4 mg IVP once; over 2 minutes Route: IVP; Site: right hand; aa5 11:32 Drug: HYDROmorphone IVP 1 mg IVP once Route: IVP; Site: right hand; aa5 Disposition Summary: 03/06/25 15:31 Discharge Ordered Notes: Location: Home ms3 Condition: Stable ms3 Diagnosis - Left sided colitis ms3 - Lower abdominal pain, unspecified ms3 Followup: ms3 - With: Rahat Dotson MD - When: 2 - 3 days - Reason: Recheck today's complaints Discharge Instructions: - Discharge Summary Sheet ms3 - Abdominal Pain, Adult ms3 Forms: - Medication Reconciliation Form ms3 - Antibiotic Education ms3 - Prescription Opioid Use ms3 - Patient Portal Instructions ms3 - Leadership Thank You Letter ms3 Prescriptions: - Augmentin 875-125 mg Oral Tablet - take 1 tablet ORAL route every 12 hours for 10 days; 20 tablet; Refills: 0, ms3 Product Selection Permitted - dicyclomine 10 mg Oral capsule - take 1 capsule ORAL route 4 times per day; 20 capsule; Refills: 0, Product ms3 Selection Permitted Signatures: Dispatcher [employer] Katie Waddell, RN BRETT iw Sabi Moe RN RN aa5 Bakari Arvizu DO DO ms3 Corrections: (The following items were deleted from the chart) 11:25 11:25 CBC+H.LAB.BRZ ordered. EDMS EDMS 11: 11:25 COMPREHENSIVE METABOLIC PANEL+C.LAB.BRZ ordered. EDMS EDMS 11:25 11:25 LIPASE+C.LAB.BRZ ordered. EDMS EDMS 11:25 11:25 Test, Urine+UC.LAB.BRZ ordered. EDMS EDMS 11:25 11:25 Urinalysis+U.LAB.BRZ ordered. EDMS EDMS 11:25 11:25 Abdomen Limited+US.RAD.BRZ ordered. EDMS EDMS 12:42 12:18 Abdomen Pelvis W Con+CT.RAD.BRZ ordered. EDMS EDMS
--- NOTE | 2025-03-06 15:32 | ER ---
Nurse's Notes [facility] Name: Libra Singh Age: 49 yrs Sex: Female : 1975 Arrival Date: 03/06/2025 Time: 11:13 Bed 20 Private MD: Diagnosis: Left sided colitis;Lower abdominal pain, unspecified Presentation: 03/06 11:18 Chief complaint: Patient states: right sided abd pain and vomiting , pain started last iw night, vomiting this morning. Coronavirus screen: At this time, the client does not indicate any symptoms associated with coronavirus-19. Ebola Screen: No symptoms or risks identified at this time. Initial Sepsis Screen: Does the patient meet any 2 criteria? No. Patient's initial sepsis screen is negative. Does the patient have a suspected source of infection? No. Patient's initial sepsis screen is negative. Risk Assessment: Do you want to hurt yourself or someone else? Patient reports no desire to harm self or others. 11:18 Method Of Arrival: Wheelchair iw 11:18 Acuity: NALLELY 3 iw 11:19 Onset of symptoms was March 05, 2025. iw Historical: - Allergies: 11:17 No Known Allergies; iw - PMHx: 11:17 Bipolar disorder; tardive dyskinesia; iw - PSHx: 11:17 breast; Ovaries; tubal ligation; iw 11:18 tummy tuck for breast surgery; iw - Social history:: Smoking status: . Screenin:25 [facility] ED Fall Risk Assessment (Adult) History of falling in the last 3 months, aa5 including since admission No falls in past 3 months (0 pts) Confusion or Disorientation No (0 pts) Intoxicated or Sedated No (0 pts) Impaired Gait No (0 pts) Mobility Assist Device Used No (0 pt) Altered Elimination No (0 pt) Score/Fall Risk Level 0 - 2 = Low Risk Oriented to surroundings, Maintained a safe environment, Educated pt \T\ family on fall prevention, incl call for assistance when getting out of bed, Assessed \T\ reinforced patient's understanding of fall precautions. Abuse screen: Denies threats or abuse. Nutritional screening: No deficits noted. Tuberculosis screening: No symptoms or risk factors identified. Assessment: 11:25 General: Appears uncomfortable, Behavior is restless. Pain: Complains of pain in right aa5 upper quadrant Pain currently is 10 out of 10 on a pain scale. Quality of pain is described as sharp, Is continuous. Neuro: Level of Consciousness is awake, alert, obeys commands, Oriented to person, place, time, situation. Cardiovascular: Patient's skin is warm and dry. Respiratory: Airway is patent Respiratory effort is even, unlabored, Respiratory pattern is regular, symmetrical. GI: Abdomen is round non-distended, Bowel sounds present X 4 quads. Abd is soft X 4 quads Abdomen is tender to palpation in right upper quadrant Reports nausea, vomiting. : No signs and/or symptoms were reported regarding the genitourinary system. EENT: No signs and/or symptoms were reported regarding the EENT system. Derm: Skin is moist, Skin is normal, Skin temperature is warm. Musculoskeletal: Range of motion: intact in all extremities. 11:26 Reassessment: Pt vomited x 1 . aa5 12:00 Reassessment: Patient appears in no apparent distress at this time. Patient and/or jb4 family updated on plan of care and expected duration. Pain level reassessed. Patient is alert, oriented x 3, equal unlabored respirations, skin warm/dry/pink. 13:00 Reassessment: Patient appears in no apparent distress at this time. Patient and/or jb4 family updated on plan of care and expected duration. Pain level reassessed. Patient is alert, oriented x 3, equal unlabored respirations, skin warm/dry/pink. 14:00 Reassessment: Patient appears in no apparent distress at this time. Patient and/or jb4 family updated on plan of care and expected duration. Pain level reassessed. Patient is alert, oriented x 3, equal unlabored respirations, skin warm/dry/pink. 15:58 Reassessment: Patient appears in no apparent distress at this time. Patient and/or jb4 family updated on plan of care and expected duration. Pain level reassessed. Patient is alert, oriented x 3, equal unlabored respirations, skin warm/dry/pink. Vital Signs: 11:19 BP 160 / 119; Pulse 98; Resp 22; Temp 97.1; Pulse Ox 100% on R/A; Weight 72.57 kg; Pain iw 8/10; 15:58 BP 123 / 63; Pulse 83; Resp 16; Pulse Ox 100% on R/A; jb4 11:19 Pain Scale: Adult iw ED Course: 11:14 Patient arrived in ED. mr 11:18 Bakari Arvizu DO is Attending Physician. ms3 11:19 Triage completed. iw 11:21 Arm band placed on. iw 11:23 Sabi Moe, RN is Primary Nurse. aa5 11:25 Patient has correct armband on for positive identification. Bed in low position. Call aa5 light in reach. Side rails up X 1. Pulse ox on. NIBP on. 11:25 Missed attempt(s): 22 gauge in right forearm. Bleeding controlled, band aid applied, aa5 catheter tip intact. 11:28 Missed attempt(s): 24 gauge in right wrist. Bleeding controlled, band aid applied, aa5 catheter tip intact. 11:30 Initial lab(s) drawn, by me, sent to lab. Inserted saline lock: 24 gauge in right hand, aa5 using aseptic technique. Blood collected. Flushed with 10 mL NS. 12:00 Report given to Ward Yoder RN. aa5 12:42 Abdomen In Process Unspecified. EDMS 15:30 Rahat Dotson MD is Referral Physician. ms3 15:58 Provided Education on: discharge instructions.. jb4 15:58 No provider procedures requiring assistance completed. IV discontinued, intact, jb4 bleeding controlled, No redness/swelling at site. Pressure dressing applied. Administered Medications: 11:31 Drug: Famotidine IVP 20 mg IVP once; dilute with 10 mL 0.9% NaCl; give over 2 minutes aa5 Route: IVP; Site: right hand; 11:31 Drug: Ondansetron IVP 4 mg IVP once; over 2 minutes Route: IVP; Site: right hand; aa5 11:32 Drug: HYDROmorphone IVP 1 mg IVP once Route: IVP; Site: right hand; aa5 Medication: 15:58 VIS not applicable for this client. jb4 Outcome: 15:31 Discharge ordered by . ms3 15:58 Discharged to home ambulatory, jb4 15:58 Condition: stable 15:58 Discharge instructions given to patient, Instructed on discharge instructions, follow up and referral plans. medication usage, Demonstrated understanding of instructions, follow-up care, medications, Prescriptions given X 2, 16:00 Patient left the ED. jb4 Signatures: Dispatcher [employer] EDPR Janelle Rodríguez, Reg Reg mr Katie Marie, BRETT RN iw Sabi Moe, BRETT RN aa5 Ward Arroyo RN RN jb4 Bakari Arvizu DO DO ms3 Corrections: (The following items were deleted from the chart) 11:20 11:18 Chief complaint: Patient states: right sided abd pain and vomiting since this iw morning iw 11:22 11:19 BP 160 / 119; Pulse 98bpm; Resp 22bpm; Pulse Ox 100% RA; Temp 97.1F; Pain 810, iw Adult; iw
[2025-03-06 16:32] VITALS: TEMP 97.1; O2SAT 100
[2025-03-06 16:37] VITALS: BP 123/63
== END 2025-03-06 16:00 | disposition home or self-care (01) ==
LOC: ER 11:13
DX: K51.50 Left sided colitis without complications (principal)
CPT/HCPCS: 85025; 36415; 83690; 80053; 74176; 96375; 96374; 99284; J1171; J2405